=== PATIENT | female | born 1940 | race Caucasian/White ===

== ENCOUNTER 2019-02-26 08:23 | Emergency (ER) | payer MEDICARE, OTHER ==
[~2019-02-26] VITALS: Ht 157.5 cm; Wt 63.2 kg
[~2019-02-26 08:23] MED LIST: ACET-1757 PO; ASPI81TA45 PO; ATOR10TA9 PO; AZIT250T PO; BISA10SU65 PR; CEFU500T PO; CETI10TA18 PO; CYCL5TAB PO; HYDR-3241 PO; LEVO25TA4 PO; LEVO750T26 PO; METO25TA35 PO; MOME13HF2 IH; MULT-464 PO; OXYC-302 PO; RANI150T4 PO; SENN-177 PO; VERA120T2 PO; VERA360C2 PO; WARF-36 PO-COUM; WARF5TAB PO; [UNRECOGNIZED DRUG - OTHER] PO
--- NOTE | 2019-02-26 08:52 | NUR ---
[employer]: PT TO ED ROOM 19 FROM LOBBY IN [facility] AT THIS TIME.
--- NOTE | 2019-02-26 09:09 | NUR ---
DIARRHEA OVER WEEKEND AND NOTED BLACK STOOL THIS MORNING
--- NOTE | 2019-02-26 09:13 | NUR ---
HEMOCULT OBTAINED BY
[2019-02-26] MEDS ORDERED: SODIUM CHLORIDE FLUSH 10ML SYR IVF ONE (09:30)
[2019-02-26 09:31] LABS: BASOPHILS # (AUTO) 0.03 x10^3/uL (0-0.1); BASOPHILS % (AUTO) 1 % (0-1); EOSINOPHILS # (AUTO) 0.38 x10^3/uL (0-0.4); EOSINOPHILS % (AUTO) 5 % (1-7); LYMPHOCYTES # (AUTO) 1.12 x10^3/uL (1-3.4); LYMPHOCYTES % (AUTO) 16 % (22-44); MD NO; MEAN CORPUSCULAR HEMOGLOBIN 30.7 pg (27.0-34.8); MEAN CORPUSCULAR HGB CONC 32.8 g/dL (32.4-35.8); MEAN CORPUSCULAR VOLUME 93.6 fL (80-100); MONOCYTES # (AUTO) 0.99 x10^3/uL (0.2-0.8); MONOCYTES % (AUTO) 14 % (2-9); NEUTROPHILS # (AUTO) 4.52 x10^3/uL (1.8-6.8); NEUTROPHILS % (AUTO) 64 % (42-75); PLATELET COUNT 216 x10^3/uL (130-400); RED BLOOD COUNT 4.47 x10^6/uL (3.82-5.3); RED CELL DISTRIBUTION WIDTH 14.1 % (9.6-15.2)
[2019-02-26 09:41] LABS: ALANINE AMINOTRANSFERASE 25 U/L (12-78); ALBUMIN 3.4 g/dL (3.4-5.0); ANION GAP 8 mmol/L (5-15); CALCIUM 8.4 mg/dL (8.5-10.1); CHLORIDE 110 mmol/L (98-107); CREATININE 0.73 mg/dL (0.55-1.02)
[2019-02-26 09:43] LABS: ALKALINE PHOSPHATASE 93 U/L (45-117); BILIRUBIN,TOTAL 0.3 mg/dL (0.2-1.0); TOTAL PROTEIN 6.9 g/dL (6.4-8.2)
[2019-02-26] MEDS ORDERED: POTASSIUM CHLORIDE 20 MEQ TAB.ER.PRT PO ONE (10:00)
[2019-02-26 10:02] LABS: INTERNATIONAL NORMALIZED RATIO 2.78 (0.93-1.1); PROTHROMBIN TIME 28.1 Seconds (9.6-11.5)
[2019-02-26] MEDS ORDERED: POTASSIUM CHLORIDE 20 MEQ TAB.ER.PRT ONE (10:21)
[2019-02-26 11:52] VITALS: BP 125/63
== END 2019-02-26 11:54 | disposition home or self-care (01) ==
LOC: ED 11:48
DX: R19.7 Diarrhea, unspecified (principal); E87.6 Hypokalemia; I10 Essential (primary) hypertension
CPT/HCPCS: 36415; 80053; 85025; 85610; 85730; 86850; 86900; 99283

== ENCOUNTER → 2019-11-18 | Outpatient (CLI) | payer MEDICARE, OTHER ==
[~2019-11-18] MED LIST changes: -ACET-1757 PO; +ACET-2065 PO
== END | disposition home or self-care (01) ==
LOC: CVU 07:18
PROVIDERS: ATTEND Internal Medicine Cardiovascular Disease
DX: I34.8 Other nonrheumatic mitral valve disorders (principal); I27.82 Chronic pulmonary embolism
CPT/HCPCS: 93306; 93356